=== PATIENT | female | born 1960 | race Caucasian/White ===

== ENCOUNTER → 2016-12-15 | Outpatient (CLI) | payer BC ==
[~2016-12-15] MED LIST: SYNTHROID0.125 MG/T PO
== END ==
LOC: MC.RAD 15:08
DX: Z12.31 Encounter for screening mammogram for malignant neoplasm of breast (principal)

== ENCOUNTER → 2018-03-22 | Outpatient (CLI) | payer BC | LOC: MC.RAD 02-17 09:40 | DX: Z12.31 Encounter for screening mammogram for malignant neoplasm of breast (principal) ==

== ENCOUNTER 2018-06-24 19:46 | Emergency (ER) | payer BC ==
[~2018-06-24] VITALS: Ht 175.3 cm; Wt 63.6 kg
[2018-06-24 19:49] VITALS: BP 125/75; PULSE 74; TEMP 97.9
[2018-06-24] MEDS ORDERED: NORCO 325 MG-51 TAB PO (21:27)
[2018-06-24] MEDS ORDERED: SYNTHROID0.05 MG/TA PO (22:15)
== END 2018-06-24 22:11 | disposition home or self-care (01) ==
LOC: COL.ER 19:46
DX: S52.501A Unspecified fracture of the lower end of right radius, initial encounter for closed fracture (principal); S60.041A Contusion of right ring finger without damage to nail, initial encounter; W18.39XA Other fall on same level, initial encounter
CPT/HCPCS: Q4021

== ENCOUNTER → 2019-03-24 | Outpatient (CLI) | payer BC ==
[~2019-03-24] MED LIST changes: +NORCO 325 MG-51 TAB PO; +SYNTHROID0.05 MG/TA PO
== END ==
LOC: MC.RAD 13:45
DX: Z12.31 Encounter for screening mammogram for malignant neoplasm of breast (principal)

== ENCOUNTER → 2020-03-27 | Outpatient (CLI) | payer BC | LOC: MC.RAD 13:00 | DX: Z12.31 Encounter for screening mammogram for malignant neoplasm of breast (principal) ==

== ENCOUNTER → 2021-05-01 | Outpatient (CLI) | payer BC | LOC: MC.RAD 04-25 14:00 | DX: Z12.31 Encounter for screening mammogram for malignant neoplasm of breast (principal) ==

== ENCOUNTER 2021-12-30 16:59 | Emergency (ER) | payer BC ==
[~2021-12-30] VITALS: Ht 175.3 cm; Wt 65.9 kg
[2021-12-30 17:07] VITALS: TEMP 98.1
[2021-12-30 18:16] VITALS: BP 110/71; PULSE 83
== END 2021-12-30 18:18 | disposition home or self-care (01) ==
LOC: COL.ER 16:59
DX: S52.502A Unspecified fracture of the lower end of left radius, initial encounter for closed fracture (principal); V28.4XXA Motorcycle driver injured in noncollision transport accident in traffic accident, initial encounter; Y92.410 Unspecified street and highway as the place of occurrence of the external cause

== ENCOUNTER → 2024-05-05 | Outpatient (CLI) | payer BC | LOC: MC.RAD 13:49 | DX: Z12.31 Encounter for screening mammogram for malignant neoplasm of breast (principal) ==